=== PATIENT | female | born 1935 ===

== ENCOUNTER 2018-02-21 12:13 | Inpatient (IN) | payer OTHER ==
[~2018-02-21] VITALS: Ht 152.4 cm; Wt 69.4 kg
[2018-02-21] MEDS ORDERED: SYNTHROID100 MCG PO (12:32)
[2018-02-21] MEDS ORDERED: GABAPENTIN600 MG PO (12:33)
[2018-02-21] MEDS ORDERED: PRILOSEC10 MG PO (12:33)
[2018-02-21] MEDS ORDERED: AVAPRO300 MG PO (12:33)
[2018-02-21] MEDS ORDERED: CALTRATE 600+D1 EAC1 PO (12:34)
[2018-02-21] MEDS ORDERED: CENTRUM CHEWAB1 EACH PO (12:34)
[2018-02-21] MEDS ORDERED: CATAFLAN PO (12:34)
[2018-02-28] MEDS ORDERED: INTEGRA PLUS C1 EACH PO (07:44)
[2018-02-28] MEDS ORDERED: OXYC1TAB9 PO (07:44)
[2018-02-28] MEDS ORDERED: XARELTO10 MG PO (07:44)
== END 2018-02-28 13:48 | DRG 470 ==
LOC: O/R 02-26 05:50 → SURH 02-26 05:50 → SURG 02-26 07:00 → SURH 02-26 16:09
PROVIDERS: Orthopaedic Surgery Sports Medicine
PROC: 0SRD0J9 Replacement of Left Knee Joint with Synthetic Substitute, Cemented, Open Approach (ICD-10-PCS; principal; 2018-02-26 07:00)
DX: M17.12 Unilateral primary osteoarthritis, left knee (principal)